=== PATIENT | male | born 1985 | race Caucasian/White ===

== ENCOUNTER 2021-11-15 19:43 | Emergency (ER) | payer MEDICAID ==
[~2021-11-15] VITALS: Ht 172.7 cm; Wt 70.8 kg
[2021-11-15 20:07] VITALS: BP 135/83
--- NOTE | 2021-11-15 21:07 | NUR ---
PT TAKEN TO BED 3
--- NOTE | 2021-11-15 21:08 | NUR ---
36 YO/M PRESENTS TO ED W C/O DIZZYNESS, HEADACHE 3/10 PULSATING INT NON-RAD, L ARM NUMBNESS X2 WEEKS, + LOWER BACK PAIN 7/10 INT RADIATING UP BACK X2 MONTHS, +URINARY FREQUENCY W UTI X1 MONTH AGO AND GIVEN SULFAMETHAZONE HAD PINK URINE WHICH RESOLVED. PT ALSO REPORTS SLIGHT BLURRY VISION WHEN FOCUSING ON AN OBJECT FOR SOMETIME (CLEARS WITH BLINKING). + CHEST SPASMS X1 YEAR. PT DENIES ANY HEAD OR BACK INJURY, CHEST PAIN, SOB, FEVERS, CHILLS, N/V/D. NO SLURRED SPEECH, FACIAL DROOP OR EXTREMETY DRIFT NOTED. BREATHING EVEN AND UNLABORED, WILL CONTINUE TO MONITOR. PMH: DENIES ALLERGIES: DENIES
--- NOTE | 2021-11-15 21:39 | NUR ---
Dr. Ochoa examining patient.
[2021-11-15 22:03] LABS: BASOPHILS % (AUTO) 0.6 % (0.0-2.0); EOSINOPHILS % (AUTO) 0.6 % (0.0-4.0); HEMATOCRIT 43.5 % (36-52); HEMOGLOBIN 14.7 g/dL (12.0-18.0); LYMPHOCYTES # (AUTO) 1.7 K/uL (2.0-11.5); LYMPHOCYTES % (AUTO) 23.3 % (20.5-51.1); MEAN CORPUSCULAR HEMOGLOBIN 31 pg (27-31); MEAN CORPUSCULAR HGB CONC 34 g/dL (33-37); MEAN CORPUSCULAR VOLUME 91.2 fL (80-94); MONOCYTES # (AUTO) 0.7 K/uL (0.8-1.0); MONOCYTES % (AUTO) 9.7 % (1.7-9.3); NEUTROPHILS # (AUTO) 4.9 K/uL (1.8-7.7); NEUTROPHILS % (AUTO) 65.8 % (42.2-75.2); PLATELET COUNT (AUTO) 259 K/uL (140-450); RED BLOOD CELL COUNT(AUTO) 4.77 MIL/uL (4.20-6.10); RED CELL DISTRIBUTION WIDTH 13.6 % (11.6-13.7); WHITE BLOOD COUNT (AUTO) 7.4 K/uL (4.8-10.8)
[2021-11-15 22:03] LABS: BILIRUBIN,URINE NEGATIVE (NEGATIVE); BLOOD, URINE NEGATIVE (NEGATIVE); COLOR,URINE YELLOW (YELLOW); LEUKOCYTE ESTERASE ,URINE NEGATIVE (NEGATIVE); NITRITE, URINE NEGATIVE (NEGATIVE); UGLUCOSE NEGATIVE (NEGATIVE)
[2021-11-15 22:04] LABS: APPEARANCE,URINE CLEAR (CLEAR)
--- NOTE | 2021-11-15 22:18 | NUR ---
X-ray at bedside.
[2021-11-15 22:33] LABS: ALBUMIN 4.2 g/dL (3.4-5.0); ASPARTATE AMINOTRANSFERASE 13 U/L (15-37); CARBON DIOXIDE 29.8 mmol/L (21-32); CHLORIDE 103 mmol/L (98-107); CREATININE 0.9 mg/dL (0.6-1.3); GFR ARICAN-AMERICAN 123 mL/min (>90); GLUCOSE 94 mg/dL (74-106); POTASSIUM 3.8 mmol/L (3.5-5.1); SODIUM SERUM 137 mmol/L (136-145); TOTAL BILIRUBIN 0.4 mg/dL (0.0-1.0); UREA NITROGEN, BLOOD 12 mg/dL (7-18)
--- NOTE | 2021-11-16 00:20 | NUR ---
Note undone in EDM - 11/16/21 at 0042 by CARLOS 21 YO/F PRESENTS TO ED W C/O L SIDED CHEST PAIN 01/16 SHARP/SHOCK NON-RAD INT LASING A FEW SECONDS AT A TIME BEGINING X4 DAYS AGO. PT DENIES ANY FEVERS/CHILLS, N/V/D OR SOB. PT LAYING IN BED W HOB ELEVATED. BREATHING EVEN AND UNLABORED. WILL CONTINUE TO MONTIOR. PMH:ANEMIA ALLERGIES: DENIES
--- NOTE | 2021-11-16 00:39 | NUR ---
PT AMBULATORY TO BATHRROM W STEADY GAIT.
--- NOTE | 2021-11-16 00:59 | NUR ---
Dr. Valderrama examining patient.
[2021-11-16 01:01] VITALS: BP 118/79
--- NOTE | 2021-11-16 01:01 | NUR ---
Patient discharged with v/s stable. Written and verbal after care instructions given and explained. Patient verbalized understanding. Ambulatory with steady gait. All questions addressed prior to discharge. Advised to follow up with PMD.
== END 2021-11-16 01:01 | disposition home or self-care (01) ==
LOC: MED 19:43
DX: R53.1 Weakness (principal); R53.83 Other fatigue; M54.50 Low back pain, unspecified
CPT/HCPCS: 36415; 71045; 80053; 81003; 82553; 84484; 85025; 93005; 99285; Q0092